=== PATIENT | male | born 1965 | race Caucasian/White ===

== ENCOUNTER 2017-06-03 11:49 | Inpatient (IN) | payer BC ==
[~2017-06-03] VITALS: Ht 182.9 cm; Wt 110.0 kg
[2017-06-03 12:16] LABS: HEMATOCRIT 45.9 % (38.0-50.0); MCH 30.7 PG (29.0-34.0); MCHC 34.2 G/DL (30.0-36.0); MCV 89.8 FL (86-99); MEAN PLAT.VOLUME 9.7 uM^3 (9.0-12.4); PLATELET COUNT 305 K/uL (156-360); RBC DIS.WIDTH-CV 12.6 % (11.8-14.6); RBC DIS.WIDTH-SD 41.4 % (39-53); RED BLOOD COUNT 5.11 M/uL (4.00-5.50); WHITE BLOOD COUNT 10.6 K/uL (4.1-10.2)
[2017-06-03 12:32] LABS: CHLORIDE 101 mEq/L (99-109); POTASSIUM 4.7 mEq/L (3.7-5.4); SODIUM 140 mEq/L (136-147)
[2017-06-03 12:33] LABS: GLUCOSE 169 mg/dL (70-99)
[2017-06-03 12:35] LABS: ANION GAP 15 MEQ/L (2-14); TROP-I INTERPRETATION NEGATIVE; TROPONIN-I 0.01 ng/mL (0.0-0.30)
[2017-06-03 12:37] LABS: GFR ESTIMATE (CALCULATED) > 59 mL/min/
[2017-06-03 12:38] LABS: UREA NITROGEN (BUN) 15 mg/dL (9-23)
[2017-06-03 13:25] LABS: TOTAL BILIRUBIN 0.7 mg/dL (0.0-1.0)
[2017-06-03 13:26] LABS: ALKALINE PHOSPHATASE 105 IU/L (3-129)
[2017-06-03 13:30] LABS: LIPASE 23 U/L (1.0-51.0)
[2017-06-03 16:09] LABS: ADD MIUA? NO; BILIRUBIN NEGATIVE; BLOOD NEGATIVE; COLOR YELLOW ((YELLOW)); GLUCOSE (STRIP) 150; KETONES 20; LEUKOCYTES NEGATIVE; NITRITE NEGATIVE; PROTEIN (STRIP) 30; SPECIFIC GRAVITY 1.021 (1.000-1.030); UCUL ADDED? NO; UROBILINOGEN 0.2 MG/DL (0.2-1.0)
[2017-06-03 20:53] VITALS: BP 177/83
[2017-06-04 03:02] VITALS: BP 132/60
[2017-06-04 06:10] LABS: EOSINOPHIL (%) 0 % (0-5); HEMATOCRIT 43.9 % (38.0-50.0); IMMATURE GRANULOCYTE (%) 0.6 % (0.0-0.7); IMMATURE GRANULOCYTE COUNT 0.1 K/uL; INSTRUMENT ABS NEUTROPHIL CT 15.4 K/uL; LYMPHOCYTE COUNT 1.1 K/uL (1.0-2.8); MCH 31.5 PG (29.0-34.0); MCHC 34.6 G/DL (30.0-36.0); MCV 91.1 FL (86-99); MEAN PLAT.VOLUME 10.1 uM^3 (9.0-12.4); MONOCYTE (%) 2.6 % (3-12); MONOCYTE COUNT 0.5 K/uL (0-0.8); NEUTROPHIL (%) 90.2 % (45-76); NEUTROPHIL COUNT 15.4 K/uL (1.8-6.4); PLATELET COUNT 311 K/uL (156-360); RBC DIS.WIDTH-CV 12.9 % (11.8-14.6); RBC DIS.WIDTH-SD 42.7 % (39-53); RED BLOOD COUNT 4.82 M/uL (4.00-5.50); WHITE BLOOD COUNT 17.1 K/uL (4.1-10.2)
[2017-06-04 06:39] LABS: ALKALINE PHOSPHATASE 94 IU/L (3-129); ANION GAP 13 MEQ/L (2-14); ANION GAP 14 MEQ/L (2-14); CHLORIDE 100 MEQ/L (99-109); CHLORIDE 101 MEQ/L (99-109); GFR ESTIMATE (CALCULATED) > 59 mL/min/; MAGNESIUM 1.6 mg/dl (1.3-2.7); POTASSIUM 4.8 MEQ/L (3.7-5.4); SAMPLE HEMOLYSIS CHECK 0; SAMPLE ICTERIC CHECK 0; SAMPLE LIPEMIA CHECK 0; SODIUM 135 MEQ/L (136-147); UREA NITROGEN (BUN) 15 mg/dL (9-23)
[2017-06-04 06:45] LABS: GLUCOSE 274 mg/dL (70-99); GLUCOSE 276 mg/dL (70-99)
[2017-06-04 08:10] VITALS: BP 137/65
[2017-06-04 09:37] LABS: Estimated Average Glucose 171 mg/dL (70-123); HEMOGLOBIN A1c (GLYCOHEMOGLOB) 7.6 % HGB (Below 5.7)
[2017-06-04] MEDS ORDERED: CIALIS5 MG PO (09:55)
[2017-06-04] MEDS ORDERED: ALEVE220 MG PO (09:55)
[2017-06-04 11:47] LABS: POINT-OF-CARE METER ID UU13113774
[2017-06-04] MEDS ORDERED: PERCOCET 5/31 TABLET PO (12:04)
[2017-06-04 16:49] LABS: POINT-OF-CARE METER ID UU13113725
[2017-06-04 17:02] VITALS: BP 117/57
[2017-06-04 19:46] VITALS: BP 115/56
[2017-06-04 21:28] LABS: POINT-OF-CARE METER ID UU13113774
[2017-06-04 23:58] VITALS: BP 131/64
[2017-06-05 06:03] LABS: POINT-OF-CARE METER ID UU13113725
[2017-06-05 07:31] LABS: EOSINOPHIL (%) 0.4 % (0-5); EOSINOPHIL COUNT 0.1 K/uL (0-0.3); IMMATURE GRANULOCYTE (%) 0.3 % (0.0-0.7); INSTRUMENT ABS NEUTROPHIL CT 9.6 K/uL; LYMPHOCYTE COUNT 2.8 K/uL (1.0-2.8); MCH 31.6 PG (29.0-34.0); MCHC 33.2 G/DL (30.0-36.0); MEAN PLAT.VOLUME 9.9 uM^3 (9.0-12.4); MONOCYTE (%) 7.3 % (3-12); NEUTROPHIL (%) 71.1 % (45-76); NEUTROPHIL COUNT 9.6 K/uL (1.8-6.4); PLATELET COUNT 249 K/uL (156-360); RBC DIS.WIDTH-CV 13.1 % (11.8-14.6); RBC DIS.WIDTH-SD 45.6 % (39-53); RED BLOOD COUNT 4.31 M/uL (4.00-5.50); WHITE BLOOD COUNT 13.4 K/uL (4.1-10.2)
[2017-06-05 07:32] LABS: MCV 95.1 FL (86-99)
[2017-06-05 07:48] LABS: ANION GAP 11 MEQ/L (2-14); CHLORIDE 102 MEQ/L (99-109); POTASSIUM 4.1 MEQ/L (3.7-5.4); SAMPLE HEMOLYSIS CHECK 0; SAMPLE ICTERIC CHECK 0; SAMPLE LIPEMIA CHECK 0; SODIUM 138 MEQ/L (136-147); TOTAL BILIRUBIN 0.9 MG/DL (0.0-1.0)
[2017-06-05 07:54] LABS: ALKALINE PHOSPHATASE 88 IU/L (3-129); GFR ESTIMATE (CALCULATED) > 59 mL/min/; GLUCOSE 158 mg/dL (70-99); LIPASE 17 U/L (1.0-51.0); UREA NITROGEN (BUN) 21 mg/dL (9-23)
[2017-06-05 08:02] VITALS: BP 138/69
== END 2017-06-05 09:58 | disposition home or self-care (01) | DRG 418 ==
LOC: EME 11:49 → EDOF 15:58 → ENRESERV 16:06 → CANRESERV 16:35 → ENRESERV 16:35 → 5EAST 17:01 → EDOF 17:01 → ENRESERV 17:09 → 5EAST 19:55
PROVIDERS: Internal Medicine; Surgery
DX: K80.66 Calculus of gallbladder and bile duct with acute and chronic cholecystitis without obstruction (principal); K82.1 Hydrops of gallbladder; K42.9 Umbilical hernia without obstruction or gangrene; J98.11 Atelectasis; N20.2 Calculus of kidney with calculus of ureter
CPT/HCPCS: 71020; 74181; 76705; 80048; 80053; 81003; 82948; 83036; 83690; 83735; 84100; 84484; 85025; 85027; 88304; 93005; 94799; 99281; 99285; J0131; J0330; J0696; J1100; J1170; J1335; J1815; J1885; J2250; J2270; J2405; J2710; J3010; J7030; J7050; J7120